=== PATIENT | male | born 1990 | race American Indian/Alaskan Native ===

== ENCOUNTER 2018-01-29 16:29 | Emergency (ER) | payer OTHER ==
[2018-01-29 16:39] VITALS: BP 130/70
[2018-01-29] MEDS ORDERED: ULTRAM PO ONE (18:39)
[2018-01-29] MEDS ORDERED: MOTRIN PO ONE (18:39)
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
== END 2018-01-29 18:49 | disposition home or self-care (01) ==
LOC: ED 16:29
DX: M25.572 Pain in left ankle and joints of left foot (principal); R68.84 Jaw pain; M79.603 Pain in arm, unspecified
CPT/HCPCS: 99282